=== PATIENT | female | born 1965 | race Hispanic/Latino ===

== ENCOUNTER → 2024-02-14 | Day surgery (SDC) | payer BC ==
[~2024-02-14] MED LIST: ALTOPREV40 MG PO; AMLODIPINE BESYL5 MG PO; ASPIRIN EC81 MG PO; ATENOLOL50 MG PO; LIDOCAINE HCL 2% LOCAL INJ 5 ML SDV VIAL INJ ONE; MIDAZOLAM HCL 2 MG/2 ML VIAL ONE; OLMESARTAN-HCT1 EAC1 PO; OMEPRAZOLE40 MG PO; PROPOFOL IV EMULSION 10 MG/ML 20 ML VIAL ONE
[2024-02-14] MEDS: LACTATED RINGER'S 1,000 ML ONE (07:51)
[2024-02-14 09:20] VITALS: TEMP 97.1
[2024-02-14 09:40] VITALS: BP 130/80; PULSE 61; RESP 16; O2SAT 99
== END | disposition home or self-care (01) ==
LOC: OR 07:44
PROVIDERS: ATTEND Internal Medicine Gastroenterology
DX: Z12.11 Encounter for screening for malignant neoplasm of colon (principal); D12.2 Benign neoplasm of ascending colon; K57.30 Diverticulosis of large intestine without perforation or abscess without bleeding; K59.00 Constipation, unspecified; K64.8 Other hemorrhoids; K21.9 Gastro-esophageal reflux disease without esophagitis; I10 Essential (primary) hypertension; R00.1 Bradycardia, unspecified; E78.5 Hyperlipidemia, unspecified; E03.9 Hypothyroidism, unspecified; M47.9 Spondylosis, unspecified; F17.200 Nicotine dependence, unspecified, uncomplicated; Z01.810 Encounter for preprocedural cardiovascular examination; Z79.82 Long term (current) use of aspirin; Z79.899 Other long term (current) drug therapy
CPT/HCPCS: 45384; 93005; J2003; J2250